=== PATIENT | male | born 1950 | race Caucasian/White ===

== ENCOUNTER → 2021-04-27 | Outpatient (CLI) ==
[~2021-04-27] MED LIST: ASPI-281 PO; ATOR1TAB21 PO; DILT300C21 PO; IRBE75TA4 PO; IRON65TA2 PO; LORA-243 PO; MAGN1CAP PO; SYNT50TA PO; TIMO0.5S29 OU; VITATAB73 PO; VITMTA PO; XALA0.007 OU
== END ==
LOC: M LABSMTC 10:29
PROVIDERS: ATTEND Anesthesiology
DX: Z01.818 Encounter for other preprocedural examination (principal); Z11.52 Encounter for screening for COVID-19

== ENCOUNTER 2021-05-02 12:34 | Day surgery (SDC) | payer MEDICARE, BC, OTHER ==
[~2021-05-02] VITALS: Ht 195.6 cm; Wt 123.8 kg
[~2021-05-02 12:34] MED LIST changes: +NS 1,000 ML IV ONE
--- NOTE | 2021-05-02 13:23 | ROOR ---
Patient Name: Neil Slade Procedure Date: 05/02/2021 1:06 PM Date of : 1950 Age: 70 Room: [facility] Gender: Male Note Status: Finalized Procedure: Colonoscopy Indications: Positive Cologuard test Providers: Jeancarlos Almeida Jr, MD Referring MD: Grazyna King DO Requesting Provider: Medicines: Propofol per Anesthesia Complications: No immediate complications. Procedure: Pre-Anesthesia Assessment: - Prior to the procedure, a History and Physical was performed, and patient medications and allergies were reviewed. The patient is competent. The risks and benefits of the procedure and the sedation options and risks were discussed with the patient. All questions were answered and informed consent was obtained. Patient identification and proposed procedure were verified by the physician and the nurse in the pre-procedure area and in the procedure room. Mental Status Examination: alert and oriented. Airway Examination: normal oropharyngeal airway and neck mobility. Respiratory Examination: clear to auscultation. CV Examination: normal. ASA Grade Assessment: II - A patient with mild systemic disease. After reviewing the risks and benefits, the patient was deemed in satisfactory condition to undergo the procedure. The anesthesia plan was to use moderate sedation / analgesia (conscious sedation). Immediately prior to administration of medications, the patient was re-assessed for adequacy to receive sedatives. The heart rate, respiratory rate, oxygen saturations, blood pressure, adequacy of pulmonary ventilation, and response to care were monitored throughout the procedure. The physical status of the patient was re-assessed after the procedure. The Colonoscope was introduced through the anus and advanced to the cecum, identified by appendiceal orifice and ileocecal valve. The colonoscopy was performed without difficulty. The patient tolerated the procedure well. The quality of the bowel preparation was adequate. Findings: The rectum, recto-sigmoid colon, descending colon, transverse colon, ascending colon, cecum, appendiceal orifice and ileocecal valve appeared normal. A few small-mouthed diverticula were found in the sigmoid colon. Impression: - The rectum, recto-sigmoid colon, descending colon, transverse colon, ascending colon, cecum, appendiceal orifice and ileocecal valve are normal. - Diverticulosis in the sigmoid colon. - No specimens collected. Recommendation: - Discharge patient to home (ambulatory). - Repeat colonoscopy in 10 years for screening purposes. Procedure Code(s): --- Professional --- 99198, Colonoscopy, flexible; diagnostic, including collection of specimen(s) by brushing or washing, when performed (separate procedure) Diagnosis Code(s): --- Professional --- R19.5, Other fecal abnormalities K57.30, Diverticulosis of large intestine without perforation or abscess without bleeding CPT copyright 2019 [employer]. All rights reserved. The codes documented in this report are preliminary and upon hospital coder review may be revised to meet current compliance requirements. Jeancarlos Almeida MD Jeancarlos Almeida Jr, MD 05/02/2021 1:23:19 PM Electronically signed by Jeancarlos Almeida Jr, MD Number of Addenda: 0 Note Initiated On: 05/02/2021 1:06 PM Estimated Blood Loss: Estimated blood loss: none.
== END 2021-05-02 13:45 | disposition home or self-care (01) ==
LOC: M OPP 12:34
PROVIDERS: ATTEND Surgery
DX: K57.30 Diverticulosis of large intestine without perforation or abscess without bleeding (principal); R19.5 Other fecal abnormalities; Z79.82 Long term (current) use of aspirin; Z79.899 Other long term (current) drug therapy

== ENCOUNTER 2024-05-17 10:16 | Day surgery (SDC) | payer MEDICARE, BC, OTHER ==
[~2024-05-17] VITALS: Ht 195.6 cm; Wt 128.8 kg
[~2024-05-17 10:16] MED LIST changes: -ASPI-281 PO; +ASPI-310 PO; +CALC500T52 PO; +DILT300C16 PO; +IRBE75TA11 PO; -IRBE75TA4 PO; +LEVO50TA5 PO; +METF500T13 PO; -NS 1,000 ML IV ONE; +THERTAB52 PO; +TIMO0.5S20 OU; -TIMO0.5S29 OU; +TIMO1DRO5 OU; +UNRESOLVED CLARIFICATION ENTRY XX SCH; +VITA500C24 PO; +VITA80004 PO; +[UNRECOGNIZED DRUG - CODE] PO; +ceFAZolin SOD 2 GM in IV 1 EA IV ONE
[2024-05-17] MEDS ORDERED: LR 1,000 ML IV SCH (10:25)
[2024-05-17] MEDS ORDERED: propofoL 200 MG/20 ML VIAL As Ordered ONE (11:14)
[2024-05-17] MEDS ORDERED: LIDOCAINE 2% 100MG/5ML SDV (FOR ANES.) As Ordered ONE (11:14)
[2024-05-17] MEDS ORDERED: fentaNYL 100 MCG/2 ML INJECTION As Ordered ONE (11:17)
[2024-05-17] MEDS ORDERED: MIDAZOLAM INJ 2MG/2ML VIAL As Ordered ONE (11:17)
[2024-05-17] MEDS: ceFAZolin SOD 2 GM in IV 1 EA IV ONE (11:33)
[2024-05-17] MEDS: ISOSULFAN BLUE(LYMPHAZURIN) 1% 50MG/5ML VIAL As Ordered ONE (11:55)
[2024-05-17] MEDS ORDERED: KETOROLAC 60MG 2ML VIAL As Ordered ONE (12:02)
[2024-05-17 12:42] VITALS: BP 142/79; TEMP 97.6; O2SAT 97
== END 2024-05-17 12:55 | disposition home or self-care (01) ==
LOC: M SDC 10:16
PROVIDERS: ATTEND Surgery
DX: D03.61 Melanoma in situ of right upper limb, including shoulder (principal); I10 Essential (primary) hypertension; E78.00 Pure hypercholesterolemia, unspecified; Z85.46 Personal history of malignant neoplasm of prostate; D64.9 Anemia, unspecified; G47.30 Sleep apnea, unspecified; E11.40 Type 2 diabetes mellitus with diabetic neuropathy, unspecified; Z79.899 Other long term (current) drug therapy
CPT/HCPCS: 11606; 12032; 88307; J0665; J0690; J1885; J2250; J3010